=== PATIENT | female | born 1985 | race Caucasian/White ===

== ENCOUNTER 2019-05-08 05:29 | Observation (INO) ==
--- NOTE | 2019-04-26 09:34 | Anesthesiology Consultation ---
Date of Service April 26, 2019 Assessment & Plan (1) Encounter for pre-operative examination: Chart Review Chart Review: Acceptable Risk for Surgery and Patient NOT seen in Pre Admission Testing History Surgery Operation Date: 05/08/19 07:30 Proposed Procedures p Bilateral Reduction Mammoplasty with Free Nipple Grafts - Beata Hernandez MD Height/Weight Height: 5 ft 2 in Weight: 86.183 kg Allergies Allergy/AdvReac Type Severity Reaction Status Date / Time pollen extracts Allergy Intermediate UNKOWN Verified 04/25/19 13:29 bee venom protein (honey bee) Allergy Mild SWELLING Verified 04/25/19 13:29 AT SITE OF STING Medications Home Medications Medication Instructions Recorded Confirmed Last Taken clotrimazole-betamethasone 1 1 appln TOP BID PRN 01/10/19 04/25/19 Unknown %-0.05 % topical cream cephalexin 500 mg capsule 500 mg PO Q8H #21 cap 03/30/19 04/25/19 Unknown oxycodone-acetaminophen 5 mg-325 1 tab PO Q4H PRN #18 tab 03/30/19 04/25/19 Unknown mg tablet albuterol sulfate 1 inh INHALATION QID PRN 04/25/19 04/25/19 Unknown cyclobenzaprine 10 mg PO HS 04/25/19 04/25/19 Unknown fluticasone propionate [Flovent 1 puff INHALATION BID PRN 04/25/19 04/25/19 Unknown HFA] inulin [Fiber Gummies] 2 g PO QAM 04/25/19 04/25/19 Unknown naproxen 500 mg PO HS PRN 04/25/19 04/25/19 Unknown Past Medical History Medical History (Updated 04/26/19 @ 09:33 by Lissy Spangler) Asthma Muscle spasm occasional back spasms Obesity Past Surgical History Surgical History History of arthroscopy BILAT KNEES History of bilateral tubal ligation History of cholecystectomy History of tooth extraction Social History Smoking Status: Former smoker Do You Dip or Chew Tobacco: No Smoking End Date: 5 WEEKS Hx Alcohol Use: No Hx Substance Use: No substance use type: does not use Testing Laboratory Results 04/25/19 WBC 11.82 (surgeon office made aware) H/H 12.6/37.9 PLATELETS 246 SODIUM 139 POTASSIUM 3.6 CHLORIDE 108 CO2 27 BUN 10 CREATININE 0.65 GLUCOSE 81 PT 10.0 PTT 28.1 INR 1.0
[2019-05-08] MEDS ORDERED: LR 15ML/HR IV SCH (06:00)
[2019-05-08] MEDS ORDERED: CEFAZOLIN 2000MG 2,000 MG/15 ML SYR IV SCH (06:00)
[2019-05-08] MEDS ORDERED: ONDANSETRON INJ 2 MG/ML 2 ML VIAL ONE ×2 (06:27→12:08)
[2019-05-08] MEDS ORDERED: NEOSTIGMINE METHYLSULFATE 5 MG/5 ML SYR ONE (06:27)
[2019-05-08] MEDS ORDERED: DEXAMETHASONE SOD INJ 4 MG/ML VIAL ONE (06:27)
[2019-05-08] MEDS ORDERED: fentaNYL citrate 100 MCG/2 ML VIAL ONE ×3 (06:27→07:59)
[2019-05-08] MEDS ORDERED: ROCURONIUM BROMIDE 10 MG/ML 5 ML VIAL ONE (06:27)
[2019-05-08] MEDS ORDERED: PROPOFOL IV EMULSION 10 MG/ML 20 ML VIAL IV ONE ×2 (06:27→07:48)
[2019-05-08] MEDS ORDERED: LIDOCAINE HCL 2% 2 ML VIAL/AMP(20MG/ML) INFIL ONE (06:27)
[2019-05-08] MEDS ORDERED: GLYCOPYRROLATE 0.2 MG/ML VIAL ONE (06:27)
[2019-05-08] MEDS ORDERED: MIDAZOLAM HCL 1 MG/ML 2ML VIAL ONE (06:27)
[2019-05-08] MEDS ORDERED: BUPIVACAINE 0.25% 30 ML VIAL ONE (06:57)
[2019-05-08] MEDS ORDERED: LIDOCAINE/EPINEPHRINE 1% 20 ML VIAL ONE (06:57)
[2019-05-08] MEDS ORDERED: ePHEDrine sulfate 50 MG/ML AMP IV PRN (06:58)
[2019-05-08] MEDS ORDERED: ONDANSETRON INJ 2 MG/ML 2 ML VIAL IV PRN ×2 (06:58→13:11)
[2019-05-08] MEDS ORDERED: PROMETHAZINE HCL 12.5 MG in SODIUM CHLORIDE 0.9% 50 ML IV PRN ×2 (06:58→13:11)
[2019-05-08] MEDS ORDERED: HYDROmorphone INJ 2 MG/ML SYR/VIAL IV PRN (06:58)
[2019-05-08] MEDS ORDERED: ATROPINE SULFATE 0.1 MG/ML 10ML SYR IV PRN (06:58)
[2019-05-08] MEDS ORDERED: fentaNYL citrate 100 MCG/2 ML VIAL IV PRN (06:58)
--- NOTE | 2019-05-08 07:14 | History & Physical Bridge Note ---
Date of Service May 08, 2019 History & Physical Bridge Note I have examined the patient, reviewed the History & Physical and in the interval since the performance of the History & Physical I have noted the following changes of clinical significance: no changes noted
--- NOTE | 2019-05-08 11:41 | Post Operative Brief Note ---
PG Immediate Post Op with CF Date of Surgery May 08, 2019 Pre & Post Diagnosis Operation Date: 05/08/19 07:30 Pre-Op Diagnosis: Symptomatic Bilateral Macromastia Post-Op Diagnosis: Symptomatic Bilateral Macromastia I identified the patient and participated in the time-out.: Yes Procedure Operation Date: 05/08/19 07:30 Actual Procedures p Bilateral Breast Reduction with Free Nipple Grafts(Bilateral) - Beata Hernandez MD Surgeon Beata Hernandez MD Director Business Systems Violeta San PA-C Estimated Blood Loss 75 Findings Consistent with Post-Op Diagnosis Specimens Specimen Description: Fresh Specimen: A.) Left Breast Tissue - 1162 grams Fresh Specimen: B.) Right Breast Tissue - 876 grams Drains Yogesh-Pickens Drain (x2 15 uzbek)
--- NOTE | 2019-05-08 11:42 | Operative Report ---
PG Post Operative Report Pre & Post Diagnosis Operation Date: 05/08/19 07:30 Pre-Op Diagnosis: Symptomatic Bilateral Macromastia Post-Op Diagnosis: Symptomatic Bilateral Macromastia I identified the patient and participated in the time-out.: Yes Procedure Operation Date: 05/08/19 07:30 Actual Procedures p Bilateral Breast Reduction with Free Nipple Grafts(Bilateral) - Beata Hernandez MD Surgeon Beata Hernandez MD Siding Coreboard Inspector Violeta San PA-C Estimated Blood Loss 75 Findings Consistent with Post-Op Diagnosis Specimens left breast tissue 1162 grams to pathology right breast tissue 876 g Drains JPx2 Anesthesia Type General Complications none Disposition Disposition: Recovery Room Indications back, neck and shoulder pain, intertrigo due to macromastia Description of Procedure The risks, benefits and alternatives of the procedure were explained to the patient who agreed and signed consent. She was identified and marked in the preoperative holding area. She was brought to the operating room where she was positioned supine and placed under general anesthesia without incident. Surgical site markings were again reassessed. I began with the left breast, which was substantially larger than the right. 1% lidocaine with epinephrine was used to anesthetize the planned incisions as well as the nipple areolar complex. A breast tourniquet was applied using the Heaven clamp and lap sponge. A 42 mm cookie cutter was used to circumscribe the nipple-areolar complex. The nipple-areolar complex was then removed as a full thickness graft and placed on the back table in saline soaked sponge. At this point, tourniquet was released and the inframammary fold incision was made using 15 blade scalpel. Electrocautery was used to deepen the incision through subcutaneous fat and breast parenchyma down to chest wall. Care was taken to perform this in a bevelled direction ligating vessels as needed and achieving hemostasis with electrocautery. Once the breast was mostly undermined, the superior incision was then made to the inferior aspect of the keyhole incision. This was performed using a 15 blade scalpel. Incision was then deepened using electrocautery again full thickness through the breast. A similar incision was made laterally. Centrally, the skin was incised using electrocautery and additional breast parenchyma was resected again in a beveled fashion in order to retain some projection of the breast. Tissue was passed off for weighing. Additional resection was performed until we achieved the desired size and the wound was able to be closed with minimal tension. Total resection weight on the left was 1162 grams. Hemostasis was achieved with electrocautery 0.25% Marcaine plain was used to anesthetize the incisions as well as pectoralis fascia. A 15 Samoan Tommie drain was brought out through a separate stab incision laterally toward the axilla. The keyhole was then incised using 15 blade scalpel and deepithelialized. T-junction was brought together using 2-0 Vicryl suture. Closure was begun first lateral to medial using 2-0 Vicryl deep dermal sutures and then medial to lateral using 2-0 Vicryl deep dermal sutures. Vertical limb was closed using a combination of 2-0 Vicryl deep dermal sutures and a 3-0 PDS interrupted dermal sutures. The inframammary fold incision was closed using 2-0 PDO deep dermal running Quill suture. The vertical limb was then closed using 3-0 Monocryl running subcuticular suture. Nipple areolar complex was inspected and thinned using a curved iris scissor. It was placed in the recipient bed and sutured into place using 4-0 silk tie over bolster sutures and 4-0 chromic interrupted sutures. A similar procedure was undertaken on the right side. Total resection weight was 876 grams on the right. Following placement of the Quill suture on the right, patient was placed in a seated position and the right breast was noticeably larger but had excellent shape. Therefore, suction assisted lipectomy was performed to the right breast using a 3 mm cannula to uniformly decrease the volume of the breast. Endpoint was reasonable breast symmetry. A total of 200 cc of lipoaspirate was obtained. There was reasonable symmetry at the close of the case. No complications. Dermabond Prineo was applied to the incisions. Dry dressing followed by a surgical bra were placed. The patient was awakened and transferred to the recovery room in satisfactory condition. Violeta San PA-C was present and scrubbed throughout the entire procedure and was instrumental in providing retraction, preparing the nipple graft and assisting in simultaneous wound closure. I attest to the content of the Intraoperative Record and any orders documented therein. Any exceptions are noted below.
--- NOTE | 2019-05-08 12:36 | Anesthesiology Progress Note ---
Date of Service May 08, 2019 Anesthesia Post Procedure Vital Signs Vital Signs: Temp Pulse Pulse Resp BP BP Pulse Ox 05/08/19 12:30 93 H 11 L 140/80 96 05/08/19 12:20 84 13 135/75 95 05/08/19 12:10 87 13 141/76 H 96 05/08/19 12:00 83 12 124/69 96 05/08/19 11:51 36 C L 90 18 120/64 96 05/08/19 05:54 36.8 C 96 H 18 138/87 97 Pain Intensity Bilateral Breast: Pain Intensity: 4 Transfer of Care Handoff Completed per policy Notes Mental Status: alert / awake / arousable and participated in evaluation Patient Amnestic to Procedure: Yes Nausea / Vomiting: adequately controlled Pain: adequately controlled Airway Patency, RR, SpO2: stable & adequate BP & HR: stable & adequate Hydration State: stable & adequate Anesthetic Complications: no major complications apparent and Pt Satisfied with anesthetic care
[2019-05-08] MEDS ORDERED: OXAZEPAM 10 MG CAPSULE PO PRN (13:11)
[2019-05-08] MEDS ORDERED: OXYCODONE/ACETAMINOPHEN 5mg/325mg TAB PO PRN (13:11)
[2019-05-08] MEDS ORDERED: ALBUTEROL HFA 8 GM INHALER INH PRN (13:11)
[2019-05-08] MEDS ORDERED: MoRPHine SULFATE 4 MG/ML 1 ML CARP\\VIAL IV PRN ×2 (13:11)
[2019-05-08] MEDS ORDERED: FLUTICASONE HFA 110MCG INHALER INH PRN (13:11)
[2019-05-08] MEDS ORDERED: DiphenhydrAMINE HCL 50 MG/ML VIAL IV PRN (13:11)
[2019-05-08] MEDS ORDERED: MoRPHine SULFATE 2 MG/ML CARP IV PRN (13:11)
[2019-05-08] MEDS ORDERED: ACETAMINOPHEN 325 MG TAB PO PRN (13:11)
--- NOTE | 2019-05-08 13:29 | Surgery Progress Note ---
Date of Service May 08, 2019 Assessment & Plan (1) Breast hypertrophy: s/p bilateral breast reduction with free nipple graft 1. patient resting comfortably and offers no concerns. will recheck in AM and anticipate discharge home Subjective Patient is resting comfortably with good pain control. Physical Exam Constitutional: WD/WN, vitals as above no acute distress Skin: + incision (CDI, bolsters intact, drains with bloody and serous output) Results & Data Vital Signs (Past 12 Hours) Vital Signs Temp Pulse Pulse Resp BP BP Pulse Ox 05/08/19 12:45 92 H 12 134/74 97 05/08/19 12:40 36.4 C L 89 12 121/75 97 05/08/19 12:30 93 H 11 L 140/80 96 05/08/19 12:20 84 13 135/75 95 05/08/19 12:10 87 13 141/76 H 96 05/08/19 12:00 83 12 124/69 96 05/08/19 11:51 36 C L 90 18 120/64 96 05/08/19 05:54 36.8 C 96 H 18 138/87 97 PG Care Time/CCT Total # of Minutes Spent Total Time Spent with Patient: Total time spent is greater than 50% in coordination of care (as documented) at patient's floor/unit and/or counseling patient: Coding Level of Care Code None Diagnoses Breast hypertrophy N62
[2019-05-08] MEDS ORDERED: ESMOLOL HCL INJ 10 MG/ML 10ML VIAL IV ONE (13:45)
[2019-05-08] MEDS: D5W AND 1/2NSS + 20MEQ KCL 20 MEQ/1,000 ML BAG IV SCH (14:53)
[2019-05-08] MEDS: CEFAZOLIN 2000MG 2,000 MG/15 ML SYR IV SCH ×2 (15:36→23:58)
[2019-05-08] MEDS: OXYCODONE/ACETAMINOPHEN 5mg/325mg TAB PO PRN ×2 (15:36→20:49)
[2019-05-08] MEDS: FLUTICASONE FUROATE 100MCG 14 PUFFS/INHALER INH SCH (15:37)
[2019-05-08] MEDS ORDERED: CYCLOBENZAPRINE HCL 10 MG TAB PO SCH (21:00)
[2019-05-09] MEDS: D5W AND 1/2NSS + 20MEQ KCL 20 MEQ/1,000 ML BAG IV SCH (03:51)
[2019-05-09] MEDS: OXYCODONE/ACETAMINOPHEN 5mg/325mg TAB PO PRN ×2 (03:51→09:33)
--- NOTE | 2019-05-09 08:27 | Anesthesiology Progress Note ---
Date of Service May 09, 2019 Anesthesia Post Procedure Vital Signs Vital Signs: Temp Pulse Pulse Resp BP Pulse Ox 05/09/19 07:25 36.4 C L 75 16 106/72 98 05/09/19 04:00 36.7 C 77 16 112/71 96 05/08/19 22:55 36.7 C 78 16 127/80 97 05/08/19 19:13 36.8 C 96 H 16 118/72 96 05/08/19 16:03 36.4 C L 94 H 17 112/72 96 05/08/19 15:20 36.4 C L 94 H 16 125/77 96 05/08/19 14:00 37.3 C 93 H 16 129/77 95 05/08/19 13:34 36.5 C 91 H 16 128/82 94 05/08/19 13:00 37.1 C 92 H 14 129/78 98 05/08/19 12:45 92 H 12 134/74 97 05/08/19 12:40 36.4 C L 89 12 121/75 97 05/08/19 12:30 93 H 11 L 140/80 96 05/08/19 12:20 84 13 135/75 95 05/08/19 12:10 87 13 141/76 H 96 05/08/19 12:00 83 12 124/69 96 05/08/19 11:51 36 C L 90 18 120/64 96 Pain Intensity Bilateral Breast: Pain Intensity: 6 Notes Mental Status: alert / awake / arousable and participated in evaluation Patient Amnestic to Procedure: Yes Nausea / Vomiting: adequately controlled Pain: adequately controlled Airway Patency, RR, SpO2: stable & adequate BP & HR: stable & adequate Hydration State: stable & adequate Anesthetic Complications: no major complications apparent and Pt Satisfied with anesthetic care
[2019-05-09] MEDS: FLUTICASONE FUROATE 100MCG 14 PUFFS/INHALER INH SCH (08:50)
--- NOTE | 2019-05-09 08:55 | Surgery Progress Note ---
Date of Service May 09, 2019 Assessment & Plan (1) Breast hypertrophy: s/p bilateral breast reduction with free nipple graft Anastacia's pain is well controlled. Nausea has resolved. DIVINA drains x 2 removed this AM at beside. Optifoam dressings placed. She is tolerating a regular diet. She is ambulating and voiding without issue. She is ok for discharge to home today. Discharge instructions reviewed with patient. She would like to keep her office appointment for tomorrow. All questions answered. She was encouraged to call with any questions or concerns. Subjective Anastacia is resting comfortably in bed. Her pain is well-controlled with PO pain medication. She reports that she did have some post-op nausea yesterday in to the evening, but that has resolved. She is feeling well overall. Physical Exam Physical Exam: On physical exam- support bra in place- clean, dry. Unhooked. Surgical DIVINA drains in place x 2 with minimal serosang drainage. DIVINA drains x 2 removed at bedside without issue and Optifoam dressings placed. She does have some moderate bruising on right side due to liposuction. Nipple bolsters in place. Breast incisions are clean, dry, intact with surgical glue and tape. She did comment that she is pleased with the results from her surgery. Results & Data Vital Signs (Past 12 Hours) Vital Signs Temp Pulse Resp BP Pulse Ox 05/09/19 07:25 36.4 C L 75 16 106/72 98 05/09/19 04:00 36.7 C 77 16 112/71 96 05/08/19 22:55 36.7 C 78 16 127/80 97 PG Care Time/CCT Total # of Minutes Spent Total Time Spent with Patient: Total time spent is greater than 50% in coordination of care (as documented) at patient's floor/unit and/or counseling patient: Coding Level of Care Code 03821 Subseq Obs Care Lvl 1 Diagnoses Breast hypertrophy N62
[2019-05-09] MEDS ORDERED: MULTIVITAMIN TAB PO SCH (09:00)
--- NOTE | 2019-05-10 09:01 | Discharge Summary ---
Date of Service May 10, 2019 Admission HPI Per Admitting Provider Please see admission H & P. Admission Exam Per Admitting Provider Please see admission H & P. Principal Diagnosis Bilateral Symptomatic Macromastia Discharge Exam On physical exam- support bra in place- clean, dry. Unhooked. Surgical DIVINA drains in place x 2 with minimal serosang drainage. DIVINA drains x 2 removed at bedside without issue and Optifoam dressings placed. She does have some moderate bruising on right side due to liposuction. Nipple bolsters in place. Breast incisions are clean, dry, intact with surgical glue and tape. She did comment that she is pleased with the results from her surgery. Discharge Data Allergies Allergy/AdvReac Type Severity Reaction Status Date / Time pollen extracts Allergy Intermediate UNKOWN Verified 05/08/19 05:42 bee venom protein (honey bee) Allergy Mild SWELLING Verified 05/08/19 05:42 AT SITE OF STING Procedures Performed Operation Date: 05/08/19 07:30 Actual Procedures p Bilateral Breast Reduction with Free Nipple Grafts(Bilateral) - Beata Hernandez MD Hospital Course (1) Breast hypertrophy: Anastacia is a 33-year-old female with Bilateral Symptomatic Macromastia. She was taken to the OR and underwent Bilateral Breast Reduction with Free Nipple Grafts. There were no intraoperative complications. She was taken to recovery and transferred to med/surg for observation. On POD #1, she was feeling a bit sore, but overall doing well. She did experience some post-op nausea, but that had resolved by the following morning. She was tolerating a regular diet, voiding on her own, and ambulating without issue. On exam, her vitals were stable. support bra in place- clean, dry. Unhooked. Surgical DIVINA drains in place x 2 with minimal serosang drainage. DIVINA drains x 2 removed at bedside without issue and Optifoam dressings placed. She does have some moderate bruising on right side due to liposuction. Nipple bolsters in place. Breast incisions are clean, dry, intact with surgical glue and tape. She did comment that she is pleased with the results from her surgery. She was discharged to home with instructions to follow-up in the office in 1 day. All questions answered. She was encouraged to call our office with any questions or concerns. Total Time Total Time Spent Total Time Spent (In Minutes): 5 Discharge Plan Discharge Items Patient Disposition: Home - Self-Care Reason For Visit: Symptomatic Macromastia Discharge Diagnosis: s/p bilateral breast reduction with free nipple graft Activity: As commented below Non-emergency contact: Surgeon Call non-emergency contact if: your pain is not controlled, you have a fever, your wound has increased redness and your wound has increased drainage Follow-up/Referrals: Rosalina Fong DO [Primary Care Provider] - 05/15/19 10:40 am Diet: Regular Addtl Attending Provider Instructions: ACTIVITY RECOMMENDATIONS: __Normal activities _x_No bending, lifting or straining __No driving __Driving allowed when you are off pain medications _x_Walking permitted __You should have help at home for ___ days DRESSINGS: __No dressings required _x_Keep dressings dry/in place until first office visit. You may adjust outer gauze dressing for comfort but must remain on until seen in office. __Remove dressings ___ and leave dressings off __Apply ice ___ days __Remove dressings and reapply garment __Apply antibiotic ointment (Bacitracin, Neosporin, etc) to wounds 3-4 times/day for 10 days BATHING: x__Keep dressings dry _x_Sponge bathing permitted away from breasts __Showering permitted _x_No swimming, hot tubs or soaking in a tub MEDICATIONS: Resume previous medications unless instructed otherwise by your surgeon. _x_Do not use aspirin, Motrin, Advil or Ibuprofen as these may promote bleeding. Please use Tylenol. _x_Prescription(s) provided:antibiotics and pain medications were prescribed at your office visit on 04/10. please start antibiotics today OTHER INSTRUCTIONS: __Record drain output 2-3 times per day SPECIAL CARE INSTRUCTIONS: * It is normal to have a mild fever after surgery. If your temperature is higher than 101.5 degrees F, please call the office at [phone]. * Constipation is a typical side effect of pain medication. An [id number] stool softener will help relieve this. * Leaking around surgical drains may occur and should not cause concern. Sometimes these drains become clogged. If this happens, remove the bulb and milk the clot out of the tube, then replace the bulb. * Drainage from wounds after liposuction is normal and should be expected. Garments will become soiled. You should protect furniture and bedding. This drainage should mostly subside within 2-3 days. Leave garments in place unless instructed to remove them. * If you have unusual drainage from a wound or are concerned you have an infection or have any questions or concerns, please call the office at [phone]. FOLLOW UP VISIT: If not already scheduled, please call the office, , when you return home after surgery to schedule an appointment to be seen in _1__ days and one week. Pending Studies at Discharge: Yes Studies:: pathology Stand-Alone Forms: My [facility], Opioid Pain Management, Smoking Cessation Medications and DC Order Prescriptions: Continued clotrimazole-betamethasone [Lotrisone] 1-0.05 % cream 1 appln TOP BID PRN (Reason: Rash) RF: 0 oxycodone-acetaminophen [Endocet] 5-325 mg tablet 1 tab PO Q4H PRN (Reason: pain) Qty: 18 RF: 0 cephalexin [Keflex] 500 mg capsule 500 mg PO Q8H Qty: 21 RF: 0 cyclobenzaprine 10 mg Tablet 10 mg PO HS RF: 0 Fiber Gummies 2 gram Tablet,Chewable 2 g PO QAM RF: 0 albuterol sulfate 90 mcg/actuation Hfa Aerosol Inhaler 1 inh INHALATION QID PRN (Reason: Shortness Of Breath) RF: 0 Flovent HFA 110 mcg/actuation Hfa Aerosol Inhaler 1 puff INHALATION BID PRN (Reason: Shortness Of Breath) RF: 0 Discontinued naproxen 500 mg Tablet 500 mg PO HS PRN (Reason: Pain) RF: 0 Discharge Orders: Discharge Order (Routine); Ordered 05/09/19 Ordered By: Opal Hart/Other Patient Handouts: Acetaminophen Oxycodone tablets Admission Data Admit Date/Time: 05/08/19 12:00 Attending Provider: Beata Hernandez Admit Provider: Beata Hernandez Primary Care Provider: Rosalina Fong Other Interventions: Discharge Summary Assessment (RN) Last Done: 05/09/19 09:47 DC Date/Time DO NOT enter until pt leaves facility: 05/09/19 10:42 Coding Level of Care Code 79195 OBS Care - Discharge Diagnoses Breast hypertrophy N62
== END 2019-05-09 10:42 | disposition home or self-care (01) ==
LOC: ASU 05:29 → 3N 05:29